=== PATIENT | male | born 1970 | race Two or more races ===

== ENCOUNTER → 2018-12-30 | Outpatient (CLI) | payer OTHER | END | disposition home or self-care (01) | LOC: US 09:48 | DX: E04.2 Nontoxic multinodular goiter (principal); F41.9 Anxiety disorder, unspecified | CPT/HCPCS: 10005; 10006; 10022; 76536; 76942; 88172 ==

== ENCOUNTER → 2021-05-01 | Outpatient (CLI) | payer OTHER ==
[2021-05-01 09:12] LABS: Potassium 4.1 mmol/L (3.5-5.1)
[2021-05-01 09:18] LABS: BUN/Creatinine Ratio 15.5; Calcium 8.8 mg/dL (8.5-10.1)
== END | disposition home or self-care (01) ==
LOC: CT 08:16
DX: E04.2 Nontoxic multinodular goiter (principal); R22.1 Localized swelling, mass and lump, neck; J32.2 Chronic ethmoidal sinusitis
CPT/HCPCS: 36415; 70491; 80048; Q9967

== ENCOUNTER → 2023-10-20 | Outpatient (CLI) | payer OTHER ==
[~2023-10-20] MED LIST: IOHEXOL 300 MG/ML 100ML BOTTLE IJ ONE
[2023-10-20 09:51] LABS: Chloride 107 mmol/L (98-107); Sodium 139 mmol/L (136-145)
[2023-10-20 09:52] LABS: Anion Gap 5 (5-15); Calcium 9.2 mg/dL (8.7-10.4); Carbon Dioxide 27 mmol/L (20-30)
[2023-10-20 09:57] LABS: Blood Urea Nitrogen 17 mg/dL (9-23); Glucose 105 mg/dL (74-106)
== END | disposition home or self-care (01) ==
LOC: XYW 08:56
DX: E04.2 Nontoxic multinodular goiter (principal); E03.4 Atrophy of thyroid (acquired)
CPT/HCPCS: 36415; 70492; 80048; Q9967